=== PATIENT | female | born 1940 ===

== ENCOUNTER 2019-12-08 08:45 | Inpatient (IN) | payer OTHER ==
[~2019-12-08] VITALS: Ht 165.1 cm; Wt 90.7 kg
[2019-12-08] MEDS ORDERED: COZAAR100 MG PO (09:46)
[2019-12-08] MEDS ORDERED: VERELAN180 MG PO (09:46)
[2019-12-08] MEDS ORDERED: LEVOTHYROXINE25 MCG PO (09:47)
[2019-12-16] MEDS ORDERED: CIPRO100 MG PO (07:39)
[2019-12-16] MEDS ORDERED: PERCOCET 5-3251 EACH PO (07:39)
== END 2019-12-16 10:01 | disposition home or self-care (01) | DRG 483 ==
LOC: O/R 12-15 05:50 → SURH 12-15 11:30 → O/R 12-15 11:30 → SURH 12-15 12:45 → SURG 12-15 14:46
PROVIDERS: ADMIT Orthopaedic Surgery
PROC: 0RRJ0JZ Replacement of Right Shoulder Joint with Synthetic Substitute, Open Approach (ICD-10-PCS; principal; 2019-12-15 12:45)
DX: M75.01 Adhesive capsulitis of right shoulder (principal); M19.011 Primary osteoarthritis, right shoulder; E03.8 Other specified hypothyroidism; I10 Essential (primary) hypertension